=== PATIENT | female | born 1950 | race Caucasian/White ===

== ENCOUNTER 2024-01-09 12:18 | Outpatient (CLI) | payer OTHER | END 2024-01-09 12:19 | disposition home or self-care (01) | LOC: RAD 12:18 | PROVIDERS: ATTEND Nurse Practitioner Family | DX: M25.552 Pain in left hip (principal); M16.0 Bilateral primary osteoarthritis of hip; C79.51 Secondary malignant neoplasm of bone; M89.252 Other disorders of bone development and growth, left femur; M17.12 Unilateral primary osteoarthritis, left knee | CPT/HCPCS: 72170 ==

== ENCOUNTER 2024-01-09 18:11 | Emergency (ER) | payer OTHER ==
[2024-01-09] MEDS ORDERED: Morphine 2 MG/ML VIAL ONE (18:50)
[2024-01-09] MEDS ORDERED: Ondansetron PF 4 MG/2 ML Vial ONE (18:51)
[2024-01-09 20:00] LABS: #Basophils 0.04 10x3/uL (0.0-0.2); %Basophils 0.6 % (0.0-1.0); %Eosinophils 1.7 % (0.0-10.0); %Lymphocytes 30.9 % (21.0-51.0); %Monocytes 8.4 % (0.0-10.0); Hematocrit 38.1 % (36.0-47.0); Hemoglobin 12.3 g/dL (12.0-16.0); Mean Corpuscular HGB CONC 32.3 g/dL (32.0-36.0); Mean Corpuscular Hemoglobin 28.5 pg (27.0-31.0); Mean Corpuscular Volume 88.2 fL (78.0-98.0); Mean Platelet Volume 10.4 fL (7.4-10.4); Platelet Count 262 10x3/uL (130-400); RBC Distribution Width 20.4 % (11.5-14.5); Red Blood Cell (RBC) Count 4.32 mill/uL (4.20-5.40)
[2024-01-09 20:15] LABS: ALT (SGPT) 10 U/L (8-55); AST (SGOT) 17 U/L (5-34); Albumin 3.4 g/dL (3.4-4.8); Alkaline Phosphatase 75 U/L (40-110); Anion Gap 16 mmol/L (10-20); BUN (Urea Nitrogen) 9 mg/dL (9.8-20.1); Bilirubin, Total 0.4 mg/dL (0.2-1.2); Calc. Creatinine Clearance 0 mL/min (70-130); Calcium 9.1 mg/dL (7.8-10.44); Carbon Dioxide 22 mmol/L (23-31); Chloride 107 mmol/L (98-107); Estimated GFR 83; Globulin 3.6 g/dL (2.4-3.5); Glucose 140 mg/dL (83-110); Potassium 3.5 mmol/L (3.5-5.1); Sodium 141 mmol/L (136-145)
[2024-01-09] MEDS ORDERED: Morphine 4 MG/ML VIAL ONE (22:51)
== END 2024-01-10 00:28 | disposition home or self-care (01) ==
LOC: ERS 18:11
DX: M89.9 Disorder of bone, unspecified (principal); M79.652 Pain in left thigh; I10 Essential (primary) hypertension; E11.9 Type 2 diabetes mellitus without complications; Z55.6 Problems related to health literacy
CPT/HCPCS: 72192; 73700; 80053; 83605; 85025; J2272 ×2; J2405; 96374; 96375; 96376

== ENCOUNTER 2024-01-20 11:00 | Outpatient (CLI) | payer MEDICARE | END 2024-01-20 11:01 | disposition home or self-care (01) | LOC: PET 11:00 | PROVIDERS: ATTEND Internal Medicine Hematology & Oncology | DX: D47.2 Monoclonal gammopathy (principal); C79.51 Secondary malignant neoplasm of bone; C77.3 Secondary and unspecified malignant neoplasm of axilla and upper limb lymph nodes; C50.911 Malignant neoplasm of unspecified site of right female breast | CPT/HCPCS: 78815; A9552 ==

== ENCOUNTER → 2024-01-22 | Day surgery (SDC) | payer MEDICARE ==
[~2024-01-22] MED LIST: Lidocaine 1% w/Epinephrine 1:100K 20 ML VIAL ONE; Sodium Bicarbonate 2.5 MEQ/5 ML SDV ONE
== END ==
LOC: ULT 11:34
PROVIDERS: ATTEND Internal Medicine Hematology & Oncology
PROC: 07B53ZX Excision of Right Axillary Lymphatic, Percutaneous Approach, Diagnostic (ICD-10-PCS; principal; 2024-01-22)
DX: C77.3 Secondary and unspecified malignant neoplasm of axilla and upper limb lymph nodes (principal); C50.911 Malignant neoplasm of unspecified site of right female breast; I10 Essential (primary) hypertension; E11.9 Type 2 diabetes mellitus without complications; F32.A Depression, unspecified; F41.9 Anxiety disorder, unspecified; Z91.048 Other nonmedicinal substance allergy status; Z79.899 Other long term (current) drug therapy
CPT/HCPCS: 38505; 76942; 88305; 88333; 88334; 88341; 88342

== ENCOUNTER 2024-02-13 04:57 | Inpatient (IN) | payer MEDICARE ==
[2024-02-13] MEDS ORDERED: HYDROmorphone 0.5 MG/0.5 ML SYRINGE ONE ×4 (05:35→07:37)
[2024-02-13] MEDS ORDERED: CEFAZOLIN 2 GM in Sodium Chloride 0.9% 100 ML IVPB SCH (07:30)
[2024-02-13 09:38] LABS: #Basophils 0.04 10x3/uL (0.0-0.2); #Eosinophils Less than 0.03 10x3/uL (0.0-0.7); %Basophils 0.4 % (0.0-1.0); %Eosinophils 0.2 % (0.0-10.0); %Lymphocytes 7.8 % (21.0-51.0); %Monocytes 5.5 % (0.0-10.0); %Neutrophils 85.5 % (42.0-75.0); Hematocrit 39.3 % (36.0-47.0); Hemoglobin 12.4 g/dL (12.0-16.0); Mean Corpuscular HGB CONC 31.6 g/dL (32.0-36.0); Mean Corpuscular Hemoglobin 27.7 pg (27.0-31.0); Mean Corpuscular Volume 87.9 fL (78.0-98.0); Mean Platelet Volume 9.6 fL (7.4-10.4); Platelet Count 249 10x3/uL (130-400); RBC Distribution Width 19.9 % (11.5-14.5); Red Blood Cell (RBC) Count 4.47 mill/uL (4.20-5.40)
[2024-02-13] MEDS ORDERED: Ondansetron PF 4 MG/2 ML Vial IVP PRN (09:49)
[2024-02-13 09:50] LABS: ALT (SGPT) 19 U/L (8-55); AST (SGOT) 29 U/L (5-34); Albumin 3.2 g/dL (3.4-4.8); Alkaline Phosphatase 89 U/L (40-110); Anion Gap 15 mmol/L (10-20); BUN (Urea Nitrogen) 8 mg/dL (9.8-20.1); Bilirubin, Total 0.9 mg/dL (0.2-1.2); Calc. Creatinine Clearance 0 mL/min (70-130); Calcium 9.1 mg/dL (7.8-10.44); Carbon Dioxide 23 mmol/L (23-31); Chloride 104 mmol/L (98-107); Estimated GFR 89; Glucose 157 mg/dL (83-110); Potassium 3.5 mmol/L (3.5-5.1); Protein, Total 7.2 g/dL (5.8-8.1); Sodium 138 mmol/L (136-145)
[2024-02-13] MEDS ORDERED: HYDROmorphone 0.5 MG/0.5 ML SYRINGE SLOW IVP PRN (09:52)
[2024-02-13] MEDS ORDERED: Glucagon 1 MG/ML KIT IM PRN (11:01)
[2024-02-13] MEDS ORDERED: Dextrose 50% Abboject 50 ML SYRINGE SLOW IVP PRN (11:01)
[2024-02-13] MEDS ORDERED: Insulin Lispro 100 UNIT/ML 10 ML VIAL SC PRN (11:01)
[2024-02-13] MEDS ORDERED: Dextrose 5% in Water 1,000 ML IV PRN (11:01)
[2024-02-13] MEDS ORDERED: hydrALAZINE 20 MG/ML VIAL SLOW IVP PRN (11:03)
[2024-02-13] MEDS: Sodium Chloride 0.9% 1,000 ML IV SCH (11:44)
[2024-02-13] MEDS: fentaNYL 50 mcg/mL 1 mL Vial SLOW IVP SCH (12:19)
[2024-02-13 14:02] VITALS: BMI 33.3
[2024-02-13] MEDS: Morphine 4 MG/ML VIAL SLOW IVP PRN (14:11)
[2024-02-13] MEDS ORDERED: PROPOFOL 40 ML ONE (16:15)
[2024-02-13] MEDS ORDERED: Ondansetron PF 4 MG/2 ML Vial ONE (16:15)
[2024-02-13] MEDS ORDERED: Lidocaine 1% PF 5 ML VIAL ONE (16:15)
[2024-02-13] MEDS ORDERED: Dexamethasone 4 mg/ml Vial ONE (16:15)
[2024-02-13] MEDS ORDERED: fentaNYL PF 100 MCG/2 ML SYRINGE ONE (16:15)
[2024-02-13] MEDS ORDERED: PHENYLEPHRINE-NS 100 MCG/ML 10 ML SYRINGE ONE (16:16)
[2024-02-13] MEDS ORDERED: fentaNYL 50 mcg/mL 1 mL Vial ONE ×2 (16:24→18:33)
[2024-02-13] MEDS ORDERED: CEFAZOLIN 2 GM VIAL ONE (16:25)
[2024-02-13] MEDS ORDERED: Rocuronium Bromide 10 MG/ML (10ML VIAL) ONE (16:41)
[2024-02-13] MEDS ORDERED: SUGAMMADEX SODIUM 200 MG/2 ML VIAL ONE (17:07)
[2024-02-13] MEDS ORDERED: Ondansetron HCl/PF 4 MG/2 ML Vial IVP PRN (17:07)
[2024-02-13] MEDS: Famotidine/PF 20 mg/2ml Vial SLOW IVP SCH (20:33)
[2024-02-13] MEDS: Acetaminophen 500 MG TAB PO SCH (20:34)
[2024-02-13] MEDS: CEFAZOLIN 2 GM in Sodium Chloride 0.9% 100 ML IVPB SCH (23:41)
[2024-02-14 04:55] LABS: #Basophils 0.04 10x3/uL (0.0-0.2); #Eosinophils Less than 0.03 10x3/uL (0.0-0.7); %Basophils 0.4 % (0.0-1.0); %Eosinophils 0.1 % (0.0-10.0); %Lymphocytes 12.1 % (21.0-51.0); %Monocytes 12.1 % (0.0-10.0); %Neutrophils 74.8 % (42.0-75.0); Hematocrit 34.8 % (36.0-47.0); Mean Corpuscular HGB CONC 31.6 g/dL (32.0-36.0); Mean Corpuscular Hemoglobin 27.7 pg (27.0-31.0); Mean Corpuscular Volume 87.7 fL (78.0-98.0); Mean Platelet Volume 10.4 fL (7.4-10.4); Platelet Count 256 10x3/uL (130-400); RBC Distribution Width 19.7 % (11.5-14.5); Red Blood Cell (RBC) Count 3.97 mill/uL (4.20-5.40)
[2024-02-14 05:15] LABS: ALT (SGPT) 13 U/L (8-55); AST (SGOT) 28 U/L (5-34); Albumin 2.7 g/dL (3.4-4.8); Alkaline Phosphatase 72 U/L (40-110); Anion Gap 11 mmol/L (10-20); BUN (Urea Nitrogen) 8 mg/dL (9.8-20.1); Bilirubin, Total 0.8 mg/dL (0.2-1.2); Calc. Creatinine Clearance 110 mL/min (70-130); Calcium 8.6 mg/dL (7.8-10.44); Carbon Dioxide 25 mmol/L (23-31); Chloride 104 mmol/L (98-107); Estimated GFR 92; Globulin 3.5 g/dL (2.4-3.5); Glucose 148 mg/dL (83-110); Potassium 3.9 mmol/L (3.5-5.1); Protein, Total 6.2 g/dL (5.8-8.1); Sodium 136 mmol/L (136-145)
[2024-02-14] MEDS: FLU (Fluad Triv) TS24-25 (65UP)/MF59C/PF 45 MCG/0.5 ML Syringe IM ONE (10:10)
[2024-02-14 11:44] VITALS: BMI 33.3
[2024-02-14] MEDS ORDERED: Insulin Lispro 100 UNIT/ML 10 ML VIAL SC PRN (14:03)
[2024-02-14] MEDS: Gabapentin 300 MG CAP PO SCH (15:23)
[2024-02-14] MEDS: Letrozole 2.5 MG TAB PO SCH (15:23)
[2024-02-14] MEDS: Senokot S 8.6-50 MG TAB PO SCH (20:26)
[2024-02-14] MEDS: Acetaminophen 325 MG TAB PO PRN (20:29)
[2024-02-15] MEDS: Ketorolac Tromethamine 30 MG (1 mL) VIAL IVP PRN (04:46)
[2024-02-15] MEDS: Sertraline 25 MG TAB PO SCH (09:02)
[2024-02-15] MEDS: Ezetimibe 10 MG TAB PO SCH (09:03)
[2024-02-15] MEDS: Atenolol 25 MG TAB PO SCH (09:03)
[2024-02-15] MEDS: Letrozole 2.5 MG TAB PO SCH (09:12)
[2024-02-15] MEDS: Famotidine 20 MG TAB PO SCH (09:16)
[2024-02-15] MEDS ORDERED: Polyethylene Glycol 3350 17 GM Packet PO PRN (11:39)
[2024-02-15] MEDS: Morphine ER 30 MG TAB PO SCH (11:59)
[2024-02-15] MEDS: PARoxetine 20 MG TAB PO SCH (12:02)
[2024-02-15] MEDS: Methocarbamol 500 MG TAB PO PRN (15:00)
[2024-02-15] MEDS: Senokot S 8.6-50 MG TAB PO SCH (19:34)
[2024-02-16] MEDS: Zolpidem Tartrate 5 MG TAB PO SCH ×2 (00:57→21:43)
[2024-02-16 05:52] LABS: #Basophils Less than 0.03 10x3/uL (0.0-0.2); %Basophils 0.3 % (0.0-1.0); %Lymphocytes 27.9 % (21.0-51.0); %Monocytes 11.1 % (0.0-10.0); %Neutrophils 56.2 % (42.0-75.0); Hematocrit 26.1 % (36.0-47.0); Hemoglobin 8.2 g/dL (12.0-16.0); Mean Corpuscular HGB CONC 31.4 g/dL (32.0-36.0); Mean Corpuscular Volume 89.1 fL (78.0-98.0); Mean Platelet Volume 11.1 fL (7.4-10.4); Platelet Count 156 10x3/uL (130-400); RBC Distribution Width 19.5 % (11.5-14.5); Red Blood Cell (RBC) Count 2.93 mill/uL (4.20-5.40)
[2024-02-16 06:26] LABS: Anion Gap 11 mmol/L (10-20); BUN (Urea Nitrogen) 16 mg/dL (9.8-20.1); Calc. Creatinine Clearance 109 mL/min (70-130); Calcium 8.2 mg/dL (7.8-10.44); Carbon Dioxide 24 mmol/L (23-31); Chloride 104 mmol/L (98-107); Estimated GFR 92; Glucose 131 mg/dL (83-110); Magnesium 1.8 mg/dL (1.6-2.6); Potassium 3.4 mmol/L (3.5-5.1); Sodium 136 mmol/L (136-145)
[2024-02-16 14:58] LABS: Hematocrit 27.2 % (36.0-47.0); Hemoglobin 8.4 g/dL (12.0-16.0); Mean Corpuscular HGB CONC 30.9 g/dL (32.0-36.0); Mean Corpuscular Hemoglobin 27.8 pg (27.0-31.0); Mean Corpuscular Volume 90.1 fL (78.0-98.0); Mean Platelet Volume 10.4 fL (7.4-10.4); Platelet Count 172 10x3/uL (130-400); RBC Distribution Width 19.4 % (11.5-14.5); Red Blood Cell (RBC) Count 3.02 mill/uL (4.20-5.40)
[2024-02-16] MEDS: Morphine ER 30 MG TAB PO SCH (21:42)
[2024-02-17 06:04] LABS: #Basophils 0.03 10x3/uL (0.0-0.2); %Basophils 0.5 % (0.0-1.0); %Eosinophils 3.6 % (0.0-10.0); %Lymphocytes 23.2 % (21.0-51.0); %Monocytes 9.7 % (0.0-10.0); %Neutrophils 62.3 % (42.0-75.0); Hematocrit 28.7 % (36.0-47.0); Hemoglobin 8.9 g/dL (12.0-16.0); Mean Corpuscular Volume 90.3 fL (78.0-98.0); Mean Platelet Volume 10.8 fL (7.4-10.4); Platelet Count 207 10x3/uL (130-400); RBC Distribution Width 19.5 % (11.5-14.5); Red Blood Cell (RBC) Count 3.18 mill/uL (4.20-5.40)
[2024-02-17 06:35] LABS: Anion Gap 10 mmol/L (10-20); BUN (Urea Nitrogen) 10 mg/dL (9.8-20.1); Calc. Creatinine Clearance 102 mL/min (70-130); Calcium 8.5 mg/dL (7.8-10.44); Carbon Dioxide 28 mmol/L (23-31); Chloride 104 mmol/L (98-107); Estimated GFR 91; Glucose 165 mg/dL (83-110); Potassium 3.9 mmol/L (3.5-5.1); Sodium 138 mmol/L (136-145)
[2024-02-17] MEDS: Cholecalciferol 1,000 UNITS (25 MCG) TAB PO SCH (09:05)
[2024-02-17] MEDS: Morphine ER 30 MG TAB PO SCH (09:06)
[2024-02-17] MEDS: Sodium Chloride 0.9% 500 ML IV SCH (20:37)
[2024-02-19] MEDS: clonazePAM 0.5 MG TAB PO PRN (18:57)
[2024-02-20 08:40] VITALS: BP 125/77; TEMP 97.2
== END 2024-02-20 12:35 | DRG 481 ==
LOC: ERS 04:57 → SURG A 07:10
PROVIDERS: ADMIT Internal Medicine; ATTEND Internal Medicine
PROC: 0QS734Z Reposition Left Upper Femur with Internal Fixation Device, Percutaneous Approach (ICD-10-PCS; principal; 2024-02-14)
DX: M84.452A Pathological fracture, left femur, initial encounter for fracture (principal); C79.89 Secondary malignant neoplasm of other specified sites; F41.9 Anxiety disorder, unspecified; F32.A Depression, unspecified; E78.5 Hyperlipidemia, unspecified; I12.9 Hypertensive chronic kidney disease with stage 1 through stage 4 chronic kidney disease, or unspecified chronic kidney disease; E11.22 Type 2 diabetes mellitus with diabetic chronic kidney disease; N18.9 Chronic kidney disease, unspecified; M54.50 Low back pain, unspecified; G89.4 Chronic pain syndrome; C50.911 Malignant neoplasm of unspecified site of right female breast; D64.9 Anemia, unspecified; E66.9 Obesity, unspecified; Z68.33 Body mass index [BMI] 33.0-33.9, adult
CPT/HCPCS: 36415; 36416; 80048; 80053; 82306; 83735; 85025; 93005; 93010; 96374; 96376; C1713; J1100; J1171; J1885; J2272; J2405; J2704; J3010; J3490; J7030

== ENCOUNTER 2024-10-02 09:30 | Outpatient (CLI) | payer MEDICARE | END 2024-10-02 09:31 | disposition home or self-care (01) | LOC: PET 09:30 | PROVIDERS: ATTEND Internal Medicine Hematology & Oncology | DX: C79.51 Secondary malignant neoplasm of bone (principal); D47.2 Monoclonal gammopathy; C50.111 Malignant neoplasm of central portion of right female breast | CPT/HCPCS: 78815; A9552 ==

== ENCOUNTER 2024-10-20 11:00 | Outpatient (CLI) | payer MEDICARE | END 2024-10-20 11:01 | disposition home or self-care (01) | LOC: BICRAD 11:00 | PROVIDERS: ATTEND Physician Assistant | DX: S12.590D Other displaced fracture of sixth cervical vertebra, subsequent encounter for fracture with routine healing (principal); D47.2 Monoclonal gammopathy; C79.51 Secondary malignant neoplasm of bone; C50.111 Malignant neoplasm of central portion of right female breast | CPT/HCPCS: 72040; 80053; 85025; 86300 ==

== ENCOUNTER 2025-01-01 14:35 | Inpatient (IN) | payer MEDICARE ==
[2025-01-01 15:07] LABS: Bacteria/HPF 4+ HPF (None Seen); CAUTI Indications for Culture Immunosuppressed; Glucose, Urine (Dipstick) Greater than 1000 mg/dL (Negative); Leukocyte 500 Leu/uL (Negative); Protein, Urine (Dipstick) 30 mg/dL (Neg-Trace); RBC/HPF Greater than 50 HPF (0-3); Specific Gravity, Urine 1.024 (1.002-1.036); WBC/HPF Greater than 50 HPF (0-3)
[2025-01-01 15:09] LABS: Urine Culture Reflex Yes Yes
[2025-01-01 15:45] LABS: Hematocrit 23.3 % (36.0-47.0); Hemoglobin 7.4 g/dL (12.0-16.0); Mean Corpuscular Hemoglobin 28.5 pg (27.0-31.0); Mean Corpuscular Volume 89.6 fL (78.0-98.0); Platelet Count 57 10x3/uL (130-400); Red Blood Cell (RBC) Count 2.60 mill/uL (4.20-5.40); White Blood Cell (WBC) Count 2.40 10x3/uL (4.8-10.8)
[2025-01-01 15:53] LABS: ALT (SGPT) Less than 7 U/L (Less than 34); AST (SGOT) 29 U/L (11-34); Albumin 3.0 g/dL (3.1-4.5); Alkaline Phosphatase 48 U/L (40-110); Anion Gap 18 mmol/L (10-20); BUN (Urea Nitrogen) 8 mg/dL (9.8-20.1); Bilirubin, Total 1.0 mg/dL (0.3-1.2); Calc. Creatinine Clearance 0 mL/min (70-130); Calcium 8.8 mg/dL (7.8-10.44); Carbon Dioxide 20 mmol/L (23-31); Chloride 103 mmol/L (98-107); Globulin 3.8 g/dL (2.4-3.5); Glucose 103 mg/dL (83-110); Potassium 4.1 mmol/L (3.5-5.1); Sodium 137 mmol/L (136-145)
[2025-01-01 16:23] LABS: Anisocytosis MODERATE=16-30 cells HPF (0-5); Macrocytosis MODERATE=16-30 cells HPF (0-5); Ovalocytes SLIGHT = 2-5 cells HPF (0-1); Platelet Adequacy Comment Significant Decrease; Poikilocytosis SLIGHT = 6-15 cells HPF (0-5); Polychromasia SLIGHT = 2-3 cells HPF (0-2); Schistocytes SLIGHT = 2-5 cells HPF (0-1); Smudge Cells 7.0 %
[2025-01-01] MEDS ORDERED: HYDROcodone/Acetaminophen 5/325 mg Tablet ONE (16:28)
[2025-01-01] MEDS ORDERED: cefTRIAXone (ROCEPHIN) 1 GM VIAL ONE ×2 (17:06→18:02)
[2025-01-01] MEDS ORDERED: Acetaminophen 325 MG TAB PO PRN (18:05)
[2025-01-01] MEDS ORDERED: Ondansetron PF 4 MG/2 ML Vial IVP PRN (18:05)
[2025-01-01] MEDS ORDERED: Melatonin 3 MG TAB PO PRN (18:05)
[2025-01-01] MEDS ORDERED: Electrolyte Replacement Protocol 1 EACH FS SCH (18:15)
[2025-01-01] MEDS ORDERED: Magnesium 2 GM/50 ML(in water) 2 GM in Premix 1 BAG IVPB PRN (18:30)
[2025-01-01] MEDS ORDERED: PHOS-NAK 1 PKT PACK PO PRN (18:30)
[2025-01-01] MEDS ORDERED: Potassium Chloride 20 MEQ in Premix 1 BAG IVPB PRN (18:30)
[2025-01-01 20:53] VITALS: BMI 26.6
[2025-01-02] MEDS: HYDROcodone/Acetaminophen 5/325 mg Tablet PO PRN (00:21)
[2025-01-02] MEDS: Letrozole 2.5 MG TAB PO SCH ×2 (00:21→20:07)
[2025-01-02 05:36] LABS: Hematocrit 22.7 % (36.0-47.0); Hemoglobin 7.5 g/dL (12.0-16.0); Mean Corpuscular Hemoglobin 29.6 pg (27.0-31.0); Mean Corpuscular Volume 89.7 fL (78.0-98.0); Platelet Count 45 10x3/uL (130-400); Red Blood Cell (RBC) Count 2.53 mill/uL (4.20-5.40); Reflex for Review?? YES; White Blood Cell (WBC) Count 1.88 10x3/uL (4.8-10.8)
[2025-01-02 05:47] LABS: Anion Gap 9 mmol/L (10-20); BUN (Urea Nitrogen) 9 mg/dL (9.8-20.1); Calc. Creatinine Clearance 97 mL/min (70-130); Calcium 8.2 mg/dL (7.8-10.44); Carbon Dioxide 26 mmol/L (23-31); Chloride 109 mmol/L (98-107); Glucose 112 mg/dL (83-110); Potassium 3.8 mmol/L (3.5-5.1); Sodium 140 mmol/L (136-145)
[2025-01-02 06:13] LABS: Anisocytosis SLIGHT = 6-15 cells HPF (0-5); Burr Cells SLIGHT = 2-5 cells HPF (0-1); Platelet Adequacy Comment Platelets Decreased; Poikilocytosis MODERATE=16-30 cells HPF (0-5); Polychromasia SLIGHT = 2-3 cells HPF (0-2); Schistocytes MODERATE= 6-15 cells HPF (0-1); Smudge Cells 4.0 %; Toxic Granulation SLIGHT
[2025-01-02] MEDS ORDERED: Letrozole 2.5 MG TAB PO SCH (09:00)
[2025-01-02] MEDS: FLU (Fluad Triv) 25-26 (65UP)PF 45 MCG/0.5 ML Syringe IM ONE (09:53)
[2025-01-02] MEDS: cefTRIAXone\\ROCEPHIN 1 GM in Sodium Chloride 0.9% 100 ML IVPB SCH (17:29)
[2025-01-02] MEDS: Ezetimibe 10 MG TAB PO SCH (20:07)
[2025-01-03 04:51] LABS: #Basophils Less than 0.03 10x3/uL (0.0-0.2); #Eosinophils Less than 0.03 10x3/uL (0.0-0.7); #Monocytes 0.33 10x3/uL (0.11-0.59); #Neutrophils 0.66 10x3/uL (1.40-6.50); %Basophils 1.2 % (0.0-1.0); %Eosinophils 0.6 % (0.0-10.0); %Lymphocytes 39.9 % (21.0-51.0); %Monocytes 19.1 % (0.0-10.0); %Neutrophils 38.0 % (42.0-75.0); Hematocrit 23.8 % (36.0-47.0); Hemoglobin 7.8 g/dL (12.0-16.0); Mean Corpuscular Hemoglobin 29.1 pg (27.0-31.0); Mean Corpuscular Volume 88.8 fL (78.0-98.0); Platelet Count 43 10x3/uL (130-400); Red Blood Cell (RBC) Count 2.68 mill/uL (4.20-5.40); White Blood Cell (WBC) Count 1.73 10x3/uL (4.8-10.8)
[2025-01-03 05:15] LABS: ALT (SGPT) Less than 7 U/L (Less than 34); AST (SGOT) 17 U/L (11-34); Albumin 2.3 g/dL (3.1-4.5); Alkaline Phosphatase 37 U/L (40-110); Anion Gap 10 mmol/L (10-20); BUN (Urea Nitrogen) 6 mg/dL (9.8-20.1); Bilirubin, Total 0.9 mg/dL (0.3-1.2); Calc. Creatinine Clearance 108 mL/min (70-130); Calcium 8.2 mg/dL (7.8-10.44); Carbon Dioxide 23 mmol/L (23-31); Chloride 111 mmol/L (98-107); Globulin 3.0 g/dL (2.4-3.5); Glucose 101 mg/dL (83-110); Magnesium 1.8 mg/dL (1.6-2.6); Potassium 3.5 mmol/L (3.5-5.1); Sodium 140 mmol/L (136-145)
[2025-01-03 05:20] LABS: Anisocytosis MODERATE=16-30 cells HPF (0-5); Burr Cells SLIGHT = 2-5 cells HPF (0-1); Macrocytosis SLIGHT = 6-15 cells HPF (0-5); Platelet Adequacy Comment Platelets Decreased; Poikilocytosis MODERATE=16-30 cells HPF (0-5); Polychromasia SLIGHT = 2-3 cells HPF (0-2); Smudge Cells 9.8 %; Toxic Granulation SLIGHT
[2025-01-03] MEDS: TBO-Filgrastim 300 MCG/0.5 ML VIAL SC SCH (10:04)
[2025-01-03 13:36] VITALS: BMI 26.6
[2025-01-03] MEDS: VANCOMYCIN 1.75 GM/350 ML Premix BAG IVPB SCH (15:04)
[2025-01-03] MEDS: HYDROcodone/Acetaminophen 5/325 mg Tablet PO PRN (15:04)
[2025-01-03] MEDS ORDERED: Vancomycin 1 GM in Premix 1 BAG IVPB SCH (21:00)
[2025-01-04 05:03] LABS: Hematocrit 23.6 % (36.0-47.0); Hemoglobin 7.8 g/dL (12.0-16.0); Mean Corpuscular Hemoglobin 29.7 pg (27.0-31.0); Mean Corpuscular Volume 89.7 fL (78.0-98.0); Platelet Count 43 10x3/uL (130-400); Red Blood Cell (RBC) Count 2.63 mill/uL (4.20-5.40); White Blood Cell (WBC) Count 8.50 10x3/uL (4.8-10.8)
[2025-01-04 05:08] LABS: Vancomycin, Random 13.8 ug/mL (See Comment)
[2025-01-04 05:10] LABS: ALT (SGPT) Less than 7 U/L (Less than 34); AST (SGOT) 16 U/L (11-34); Albumin 2.3 g/dL (3.1-4.5); Alkaline Phosphatase 39 U/L (40-110); Anion Gap 9 mmol/L (10-20); BUN (Urea Nitrogen) 7 mg/dL (9.8-20.1); Bilirubin, Total 0.9 mg/dL (0.3-1.2); Calc. Creatinine Clearance 104 mL/min (70-130); Calcium 8.0 mg/dL (7.8-10.44); Carbon Dioxide 24 mmol/L (23-31); Chloride 109 mmol/L (98-107); Globulin 2.8 g/dL (2.4-3.5); Glucose 110 mg/dL (83-110); Magnesium 1.6 mg/dL (1.6-2.6); Potassium 3.8 mmol/L (3.5-5.1); Sodium 138 mmol/L (136-145)
[2025-01-04 06:31] LABS: Anisocytosis SLIGHT = 6-15 cells HPF (0-5); Platelet Adequacy Comment Platelets Decreased; Poikilocytosis MARKED = >30 cells HPF (0-5); Polychromasia SLIGHT = 2-3 cells HPF (0-2); Schistocytes MODERATE= 6-15 cells HPF (0-1); Smudge Cells 8.8 %
[2025-01-04] MEDS: FILGRASTIM-AYOW 480 MCG/0.8 ML SYRINGE SC SCH (09:02)
[2025-01-04 11:39] VITALS: BP 94/58; TEMP 98.1
== END 2025-01-04 13:53 | disposition home or self-care (01) | DRG 872 ==
LOC: ERS 14:35 → ERHOLD 17:40 → T4-A 19:37 → ERHOLD 19:49 → T4-A 20:06 → OBSVTOIN 01-02 13:13
PROVIDERS: ADMIT Internal Medicine; ATTEND Internal Medicine
PROC: 3E03329 Introduction of Other Anti-infective into Peripheral Vein, Percutaneous Approach (ICD-10-PCS; principal; 2025-01-02)
PROC: 3E0234Z Introduction of Serum, Toxoid and Vaccine into Muscle, Percutaneous Approach (ICD-10-PCS; 2025-01-02)
PROC: 30233N1 Transfusion of Nonautologous Red Blood Cells into Peripheral Vein, Percutaneous Approach (ICD-10-PCS; 2025-01-02)
DX: A41.9 Sepsis, unspecified organism (principal); N39.0 Urinary tract infection, site not specified; C79.81 Secondary malignant neoplasm of breast; C79.51 Secondary malignant neoplasm of bone; D70.1 Agranulocytosis secondary to cancer chemotherapy; D63.0 Anemia in neoplastic disease; I10 Essential (primary) hypertension; E11.9 Type 2 diabetes mellitus without complications; Z96.642 Presence of left artificial hip joint; I95.9 Hypotension, unspecified; F41.8 Other specified anxiety disorders; E78.00 Pure hypercholesterolemia, unspecified; Z87.81 Personal history of (healed) traumatic fracture; Z79.899 Other long term (current) drug therapy; Z79.890 Hormone replacement therapy; C50.111 Malignant neoplasm of central portion of right female breast; D47.2 Monoclonal gammopathy
CPT/HCPCS: 36415; 36416; 36430; 80048; 80053; 80202; 81001; 82728; 83540; 83550; 83605; 83735; 85025; 85060; 86300; 86850; 86900; 86901; 87040; 87077; 87086; 87149; 87186; 96365; 96366; 97139; G0378; J0696; J1447; J3373; J3375; J7050; J7120; P9016

== ENCOUNTER 2025-01-18 09:29 | Inpatient (IN) | payer MEDICARE ==
[2025-01-18 10:08] LABS: Hematocrit 16.8 % (36.0-47.0); Hemoglobin 5.7 g/dL (12.0-16.0); Mean Corpuscular Hemoglobin 28.9 pg (27.0-31.0); Mean Corpuscular Volume 85.3 fL (78.0-98.0); Platelet Count 53 10x3/uL (130-400); Red Blood Cell (RBC) Count 1.97 mill/uL (4.20-5.40); White Blood Cell (WBC) Count 1.68 10x3/uL (4.8-10.8)
[2025-01-18 10:28] LABS: ALT (SGPT) Less than 7 U/L (Less than 34); AST (SGOT) 25 U/L (11-34); Albumin 2.9 g/dL (3.1-4.5); Alkaline Phosphatase 44 U/L (40-110); Anion Gap 14 mmol/L (10-20); BUN (Urea Nitrogen) 11 mg/dL (9.8-20.1); Bilirubin, Total 1.8 mg/dL (0.3-1.2); Calc. Creatinine Clearance 0 mL/min (70-130); Calcium 8.6 mg/dL (7.8-10.44); Carbon Dioxide 22 mmol/L (23-31); Chloride 105 mmol/L (98-107); Globulin 3.4 g/dL (2.4-3.5); Glucose 111 mg/dL (83-110); Potassium 3.6 mmol/L (3.5-5.1); Sodium 137 mmol/L (136-145)
[2025-01-18 10:31] LABS: Anisocytosis MODERATE=16-30 cells HPF (0-5); Burr Cells SLIGHT = 2-5 cells HPF (0-1); Nucleated RBC (Manual Ct) 1 % (0); Ovalocytes SLIGHT = 2-5 cells HPF (0-1); Platelet Adequacy Comment Platelets Decreased; Poikilocytosis MODERATE=16-30 cells HPF (0-5); Polychromasia SLIGHT = 2-3 cells HPF (0-2); Schistocytes MODERATE= 6-15 cells HPF (0-1)
[2025-01-18] MEDS ORDERED: Amoxicillin/Potassium Clav 875 MG TAB ONE (10:55)
[2025-01-18] MEDS ORDERED: Acetaminophen 325 MG TAB PO PRN (15:25)
[2025-01-18] MEDS ORDERED: Ondansetron PF 4 MG/2 ML Vial IVP PRN (15:25)
[2025-01-18] MEDS ORDERED: Guaifenesin DM 100-10/5 ML UDCUP PO PRN (15:25)
[2025-01-18] MEDS ORDERED: Dextrose 50% Abboject 50 ML SYRINGE SLOW IVP PRN (15:28)
[2025-01-18] MEDS ORDERED: Glucagon 1 MG/ML KIT IM PRN (15:28)
[2025-01-18] MEDS ORDERED: Electrolyte Replacement Protocol 1 EACH FS SCH (15:30)
[2025-01-18] MEDS ORDERED: Magnesium 2 GM/50 ML(in water) 2 GM in Premix 1 BAG IVPB PRN (15:30)
[2025-01-18] MEDS ORDERED: PHOS-NAK 1 PKT PACK PO PRN (15:30)
[2025-01-18] MEDS ORDERED: Potassium Chloride 20 MEQ in Premix 1 BAG IVPB PRN (15:30)
[2025-01-18 17:41] VITALS: BMI 26.1
[2025-01-18] MEDS: Acetaminophen/Codeine 30-300mg Tablet PO PRN (18:11)
[2025-01-18 18:45] LABS: Hematocrit 24.6 % (36.0-47.0); Hemoglobin 8.3 g/dL (12.0-16.0)
[2025-01-18] MEDS: Melatonin 3 MG TAB PO PRN (20:45)
[2025-01-18] MEDS: Methocarbamol 500 MG TAB PO PRN (20:45)
[2025-01-18] MEDS: Gabapentin 400 MG CAP PO SCH (20:45)
[2025-01-18] MEDS: Ezetimibe 10 MG TAB PO SCH (20:45)
[2025-01-19 06:09] LABS: Hematocrit 22.2 % (36.0-47.0); Hemoglobin 7.7 g/dL (12.0-16.0); Mean Corpuscular Hemoglobin 29.5 pg (27.0-31.0); Mean Corpuscular Volume 85.1 fL (78.0-98.0); Platelet Count 41 10x3/uL (130-400); Red Blood Cell (RBC) Count 2.61 mill/uL (4.20-5.40); White Blood Cell (WBC) Count 1.59 10x3/uL (4.8-10.8)
[2025-01-19 06:22] LABS: ALT (SGPT) Less than 7 U/L (Less than 34); AST (SGOT) 22 U/L (11-34); Albumin 2.6 g/dL (3.1-4.5); Alkaline Phosphatase 39 U/L (40-110); Anion Gap 12 mmol/L (10-20); BUN (Urea Nitrogen) 9 mg/dL (9.8-20.1); Bilirubin, Total 2.1 mg/dL (0.3-1.2); Calc. Creatinine Clearance 93 mL/min (70-130); Calcium 8.3 mg/dL (7.8-10.44); Carbon Dioxide 23 mmol/L (23-31); Chloride 106 mmol/L (98-107); Globulin 3.0 g/dL (2.4-3.5); Glucose 96 mg/dL (83-110); Potassium 3.7 mmol/L (3.5-5.1); Sodium 137 mmol/L (136-145)
[2025-01-19 07:44] LABS: Anisocytosis SLIGHT = 6-15 cells HPF (0-5); Burr Cells MODERATE= 6-15 cells HPF (0-1); Macrocytosis SLIGHT = 6-15 cells HPF (0-5); Ovalocytes SLIGHT = 2-5 cells HPF (0-1); Platelet Adequacy Comment Platelets Decreased; Poikilocytosis MODERATE=16-30 cells HPF (0-5); Polychromasia SLIGHT = 2-3 cells HPF (0-2); Schistocytes MODERATE= 6-15 cells HPF (0-1)
[2025-01-19] MEDS: Cholecalciferol 1,000 UNITS (25 MCG) TAB PO SCH (08:59)
[2025-01-19] MEDS ORDERED: FLU (Fluad Triv) 25-26 (65UP)PF 45 MCG/0.5 ML Syringe IM ONE (09:00)
[2025-01-19] MEDS: PARoxetine 20 MG TAB PO SCH (09:01)
[2025-01-19] MEDS: Letrozole 2.5 MG TAB PO SCH (09:01)
[2025-01-19] MEDS: Ergocalciferol 1.25 MG(50,000 UNITS) CAP PO SCH (10:32)
[2025-01-19] MEDS: Morphine IR Tab 15 MG TAB PO PRN (16:07)
[2025-01-20 05:46] LABS: Anion Gap 9 mmol/L (10-20); BUN (Urea Nitrogen) 9 mg/dL (9.8-20.1); Calc. Creatinine Clearance 93 mL/min (70-130); Calcium 8.1 mg/dL (7.8-10.44); Carbon Dioxide 24 mmol/L (23-31); Chloride 106 mmol/L (98-107); Glucose 85 mg/dL (83-110); Potassium 3.8 mmol/L (3.5-5.1); Sodium 135 mmol/L (136-145)
[2025-01-20 05:50] LABS: Hematocrit 21.6 % (36.0-47.0); Hemoglobin 7.6 g/dL (12.0-16.0); Mean Corpuscular Hemoglobin 29.7 pg (27.0-31.0); Mean Corpuscular Volume 84.4 fL (78.0-98.0); Platelet Count 33 10x3/uL (130-400); Red Blood Cell (RBC) Count 2.56 mill/uL (4.20-5.40); White Blood Cell (WBC) Count 1.71 10x3/uL (4.8-10.8)
[2025-01-20 06:29] LABS: Burr Cells SLIGHT = 2-5 cells HPF (0-1); Nucleated RBC (Manual Ct) 1 % (0); Platelet Adequacy Comment Platelets Decreased; Poikilocytosis MODERATE=16-30 cells HPF (0-5); Smudge Cells 22.0 %
[2025-01-20 09:36] LABS: Bacteria/HPF 3+ HPF (None Seen); CAUTI Indications for Culture Dysuria,urgency,freq; Glucose, Urine (Dipstick) 300 mg/dL (Negative); Leukocyte Negative Leu/uL (Negative); Protein, Urine (Dipstick) Negative (Neg-Trace); Specific Gravity, Urine 1.006 (1.002-1.036); WBC/HPF 0-3 HPF (0-3); Yeast-Budding 1+ HPF (None Seen)
[2025-01-20 09:58] LABS: Urine Culture Reflex No No
[2025-01-20] MEDS: ABEMACICLIB 150 MG PO SCH (12:18)
[2025-01-20 15:28] VITALS: BMI 26.1
[2025-01-20] MEDS: Nystatin Powder 15 GM BOT TOP SCH (20:16)
[2025-01-21 08:51] LABS: Anion Gap 13 mmol/L (10-20); BUN (Urea Nitrogen) 8 mg/dL (9.8-20.1); Calc. Creatinine Clearance 87 mL/min (70-130); Calcium 8.2 mg/dL (7.8-10.44); Carbon Dioxide 21 mmol/L (23-31); Chloride 103 mmol/L (98-107); Glucose 89 mg/dL (83-110); Potassium 4.1 mmol/L (3.5-5.1); Sodium 133 mmol/L (136-145)
[2025-01-21 10:51] LABS: Platelet Adequacy Comment Platelets Decreased; Polychromasia MODERATE = 3-4 cells HPF (0-2); Schistocytes SLIGHT = 2-5 cells HPF (0-1); Smudge Cells 14.6 %
[2025-01-21 11:00] LABS: Hematocrit 25.2 % (36.0-47.0); Hemoglobin 8.3 g/dL (12.0-16.0); Mean Corpuscular Hemoglobin 29.6 pg (27.0-31.0); Mean Corpuscular Volume 89.3 fL (78.0-98.0); Platelet Count 29 10x3/uL (130-400); Red Blood Cell (RBC) Count 2.80 mill/uL (4.20-5.40); White Blood Cell (WBC) Count 1.88 10x3/uL (4.8-10.8)
[2025-01-22 06:00] LABS: Hematocrit 22.3 % (36.0-47.0); Hemoglobin 7.3 g/dL (12.0-16.0); Mean Corpuscular Hemoglobin 29.2 pg (27.0-31.0); Mean Corpuscular Volume 89.2 fL (78.0-98.0); Platelet Count 21 10x3/uL (130-400); Red Blood Cell (RBC) Count 2.50 mill/uL (4.20-5.40); White Blood Cell (WBC) Count 1.67 10x3/uL (4.8-10.8)
[2025-01-22 06:05] LABS: Anion Gap 7 mmol/L (10-20); BUN (Urea Nitrogen) 11 mg/dL (9.8-20.1); Calc. Creatinine Clearance 88 mL/min (70-130); Calcium 8.2 mg/dL (7.8-10.44); Carbon Dioxide 27 mmol/L (23-31); Chloride 102 mmol/L (98-107); Glucose 107 mg/dL (83-110); Potassium 4.2 mmol/L (3.5-5.1); Sodium 132 mmol/L (136-145)
[2025-01-22 06:31] LABS: Anisocytosis SLIGHT = 6-15 cells HPF (0-5); Platelet Adequacy Comment Platelets Decreased; Poikilocytosis MODERATE=16-30 cells HPF (0-5); Polychromasia SLIGHT = 2-3 cells HPF (0-2)
[2025-01-23 05:34] LABS: #Basophils 0.03 10x3/uL (0.0-0.2); #Eosinophils Less than 0.03 10x3/uL (0.0-0.7); #Monocytes 0.41 10x3/uL (0.11-0.59); #Neutrophils 0.47 10x3/uL (1.40-6.50); %Basophils 1.6 % (0.0-1.0); %Eosinophils 1.1 % (0.0-10.0); %Lymphocytes 47.1 % (21.0-51.0); %Monocytes 21.9 % (0.0-10.0); %Neutrophils 25.1 % (42.0-75.0); Hematocrit 25.2 % (36.0-47.0); Hemoglobin 8.2 g/dL (12.0-16.0); Mean Corpuscular Hemoglobin 29.3 pg (27.0-31.0); Mean Corpuscular Volume 90.0 fL (78.0-98.0); Platelet Count 20 10x3/uL (130-400); Red Blood Cell (RBC) Count 2.80 mill/uL (4.20-5.40); White Blood Cell (WBC) Count 1.87 10x3/uL (4.8-10.8)
[2025-01-23 05:42] LABS: Anion Gap 11 mmol/L (10-20); BUN (Urea Nitrogen) 11 mg/dL (9.8-20.1); Calc. Creatinine Clearance 90 mL/min (70-130); Calcium 8.3 mg/dL (7.8-10.44); Carbon Dioxide 26 mmol/L (23-31); Chloride 99 mmol/L (98-107); Glucose 104 mg/dL (83-110); Potassium 4.5 mmol/L (3.5-5.1); Sodium 131 mmol/L (136-145)
[2025-01-24 06:26] LABS: Hematocrit 21.1 % (36.0-47.0); Hemoglobin 7.0 g/dL (12.0-16.0); Mean Corpuscular Hemoglobin 29.4 pg (27.0-31.0); Mean Corpuscular Volume 88.7 fL (78.0-98.0); Platelet Count 18 10x3/uL (130-400); Red Blood Cell (RBC) Count 2.38 mill/uL (4.20-5.40); White Blood Cell (WBC) Count 1.72 10x3/uL (4.8-10.8)
[2025-01-24 06:48] LABS: Anion Gap 9 mmol/L (10-20); BUN (Urea Nitrogen) 12 mg/dL (9.8-20.1); Calc. Creatinine Clearance 88 mL/min (70-130); Calcium 7.9 mg/dL (7.8-10.44); Carbon Dioxide 25 mmol/L (23-31); Chloride 101 mmol/L (98-107); Glucose 108 mg/dL (83-110); Potassium 4.1 mmol/L (3.5-5.1); Sodium 131 mmol/L (136-145)
[2025-01-24 07:00] LABS: Platelet Adequacy Comment Platelets Decreased; Poikilocytosis SLIGHT = 6-15 cells HPF (0-5); Polychromasia SLIGHT = 2-3 cells HPF (0-2); Smudge Cells 9.8 %
[2025-01-25 05:35] LABS: #Basophils 0.03 10x3/uL (0.0-0.2); #Eosinophils Less than 0.03 10x3/uL (0.0-0.7); #Monocytes 0.37 10x3/uL (0.11-0.59); #Neutrophils 0.48 10x3/uL (1.40-6.50); %Basophils 1.6 % (0.0-1.0); %Eosinophils 0.5 % (0.0-10.0); %Lymphocytes 50.3 % (21.0-51.0); %Monocytes 20.2 % (0.0-10.0); %Neutrophils 26.3 % (42.0-75.0); Hematocrit 19.3 % (36.0-47.0); Hemoglobin 6.5 g/dL (12.0-16.0); Mean Corpuscular Hemoglobin 29.7 pg (27.0-31.0); Mean Corpuscular Volume 88.1 fL (78.0-98.0); Platelet Count 36 10x3/uL (130-400); Red Blood Cell (RBC) Count 2.19 mill/uL (4.20-5.40); White Blood Cell (WBC) Count 1.83 10x3/uL (4.8-10.8)
[2025-01-26 05:48] LABS: Hematocrit 22.1 % (36.0-47.0); Hemoglobin 7.4 g/dL (12.0-16.0); Mean Corpuscular Hemoglobin 29.4 pg (27.0-31.0); Mean Corpuscular Volume 87.7 fL (78.0-98.0); Platelet Count 26 10x3/uL (130-400); Red Blood Cell (RBC) Count 2.52 mill/uL (4.20-5.40); White Blood Cell (WBC) Count 1.77 10x3/uL (4.8-10.8)
[2025-01-26 06:18] LABS: Anisocytosis SLIGHT = 6-15 cells HPF (0-5); Nucleated RBC (Manual Ct) 1 % (0); Platelet Adequacy Comment Platelets Decreased; Polychromasia SLIGHT = 2-3 cells HPF (0-2)
[2025-01-26] MEDS: Glycerin Adult Supp. (12 ct jar) RC SCH (17:54)
[2025-01-26 18:32] VITALS: BP 106/68; TEMP 98.6
== END 2025-01-26 18:23 | DRG 809 ==
LOC: ERS 09:29 → T4-A 15:56 → OBSVTOIN 01-19 17:18
PROVIDERS: ADMIT Internal Medicine; ATTEND Hospitalist
DX: D61.810 Antineoplastic chemotherapy induced pancytopenia (principal); C79.51 Secondary malignant neoplasm of bone; C50.919 Malignant neoplasm of unspecified site of unspecified female breast; I10 Essential (primary) hypertension; E78.5 Hyperlipidemia, unspecified; E11.9 Type 2 diabetes mellitus without complications; Z79.899 Other long term (current) drug therapy
CPT/HCPCS: 36415; 36416; 36430; 71045; 80048; 80053; 81001; 82550; 84484; 85025; 86850; 86900; 86901; 93005; 93010; 96374; 96375; 96376; 97139; G0378; J2272; J3010; P9016; P9035

== ENCOUNTER 2025-02-02 16:00 | Inpatient (IN) | payer MEDICARE ==
[2025-02-02 16:57] LABS: Hematocrit 19.1 % (36.0-47.0); Hemoglobin 6.6 g/dL (12.0-16.0); Mean Corpuscular Hemoglobin 30.4 pg (27.0-31.0); Mean Corpuscular Volume 88.0 fL (78.0-98.0); Platelet Count 15 10x3/uL (130-400); Red Blood Cell (RBC) Count 2.17 mill/uL (4.20-5.40); White Blood Cell (WBC) Count 1.28 10x3/uL (4.8-10.8)
[2025-02-02 17:09] LABS: ALT (SGPT) 8 U/L (Less than 34); AST (SGOT) 26 U/L (11-34); Albumin 3.1 g/dL (3.1-4.5); Alkaline Phosphatase 47 U/L (40-110); Anion Gap 12 mmol/L (10-20); BUN (Urea Nitrogen) 12 mg/dL (9.8-20.1); Bilirubin, Total 1.2 mg/dL (0.3-1.2); Calc. Creatinine Clearance 0 mL/min (70-130); Calcium 8.6 mg/dL (7.8-10.44); Carbon Dioxide 25 mmol/L (23-31); Chloride 105 mmol/L (98-107); Globulin 3.5 g/dL (2.4-3.5); Glucose 102 mg/dL (83-110); Potassium 3.9 mmol/L (3.5-5.1); Sodium 138 mmol/L (136-145)
[2025-02-02 17:12] LABS: INR-International Normal Ratio 1.2; Prothrombin Time 15.4 sec (12.0-14.7)
[2025-02-02 17:13] LABS: PTT 28.6 sec (22.9-36.1)
[2025-02-02 17:30] LABS: Burr Cells SLIGHT = 2-5 cells HPF (0-1); Ovalocytes SLIGHT = 2-5 cells HPF (0-1); Platelet Adequacy Comment Platelets Decreased; Poikilocytosis MODERATE=16-30 cells HPF (0-5); Polychromasia SLIGHT = 2-3 cells HPF (0-2); Schistocytes SLIGHT = 2-5 cells HPF (0-1)
[2025-02-02] MEDS ORDERED: Ondansetron PF 4 MG/2 ML Vial IVP PRN (18:50)
[2025-02-02] MEDS ORDERED: Glucagon 1 MG/ML KIT IM PRN (19:01)
[2025-02-02] MEDS ORDERED: Dextrose 50% Abboject 50 ML SYRINGE SLOW IVP PRN (19:01)
[2025-02-03 04:21] LABS: Anion Gap 7 mmol/L (10-20); BUN (Urea Nitrogen) 11 mg/dL (9.8-20.1); Calc. Creatinine Clearance 102 mL/min (70-130); Calcium 8.3 mg/dL (7.8-10.44); Carbon Dioxide 28 mmol/L (23-31); Chloride 106 mmol/L (98-107); Glucose 91 mg/dL (83-110); Potassium 3.5 mmol/L (3.5-5.1); Sodium 137 mmol/L (136-145)
[2025-02-03 04:33] LABS: #Basophils 0.03 10x3/uL (0.0-0.2); #Eosinophils Less than 0.03 10x3/uL (0.0-0.7); #Monocytes 0.25 10x3/uL (0.11-0.59); #Neutrophils 0.51 10x3/uL (1.40-6.50); %Basophils 2.3 % (0.0-1.0); %Eosinophils 0.8 % (0.0-10.0); %Lymphocytes 37.9 % (21.0-51.0); %Monocytes 18.9 % (0.0-10.0); %Neutrophils 38.6 % (42.0-75.0); Hematocrit 18.0 % (36.0-47.0); Hemoglobin 5.8 g/dL (12.0-16.0); Mean Corpuscular Hemoglobin 27.1 pg (27.0-31.0); Mean Corpuscular Volume 84.1 fL (78.0-98.0); Platelet Count 46 10x3/uL (130-400); Red Blood Cell (RBC) Count 2.14 mill/uL (4.20-5.40); White Blood Cell (WBC) Count 1.32 10x3/uL (4.8-10.8)
[2025-02-03 06:01] LABS: Hematocrit 18.2 % (36.0-47.0); Hemoglobin 5.8 g/dL (12.0-16.0); Platelet Count 45 10x3/uL (130-400)
[2025-02-03] MEDS: HYDROcodone/Acetaminophen 5/325 mg Tablet PO PRN (10:09)
[2025-02-03 12:25] LABS: Hematocrit 22.9 % (36.0-47.0); Hemoglobin 7.4 g/dL (12.0-16.0); Mean Corpuscular Hemoglobin 27.6 pg (27.0-31.0); Mean Corpuscular Volume 85.4 fL (78.0-98.0); Platelet Count 39 10x3/uL (130-400); Red Blood Cell (RBC) Count 2.68 mill/uL (4.20-5.40); White Blood Cell (WBC) Count 1.27 10x3/uL (4.8-10.8)
[2025-02-03] MEDS: Letrozole 2.5 MG TAB PO SCH (15:56)
[2025-02-03] MEDS: metFORMIN 500 MG TAB PO SCH (15:56)
[2025-02-03] MEDS: PARoxetine 20 MG TAB PO SCH (15:57)
[2025-02-03 16:05] VITALS: BMI 25.7
[2025-02-03] MEDS: Ezetimibe 10 MG TAB PO SCH (21:00)
[2025-02-03] MEDS: Gabapentin 400 MG CAP PO SCH (21:00)
[2025-02-03] MEDS ORDERED: Gabapentin 400 MG CAP PO SCH (21:00)
[2025-02-04 01:42] VITALS: BMI 24.2
[2025-02-04 05:20] LABS: Hematocrit 26.9 % (36.0-47.0); Hemoglobin 8.9 g/dL (12.0-16.0); Mean Corpuscular Hemoglobin 28.4 pg (27.0-31.0); Mean Corpuscular Volume 85.9 fL (78.0-98.0); Platelet Count 35 10x3/uL (130-400); Red Blood Cell (RBC) Count 3.13 mill/uL (4.20-5.40); White Blood Cell (WBC) Count 1.25 10x3/uL (4.8-10.8)
[2025-02-04 05:52] LABS: Anisocytosis SLIGHT = 6-15 cells HPF (0-5); Platelet Adequacy Comment Platelets Decreased; Polychromasia SLIGHT = 2-3 cells HPF (0-2); Smudge Cells 18.4 %
[2025-02-04] MEDS: Acetaminophen 325 MG TAB PO PRN (06:36)
[2025-02-04] MEDS: PARoxetine 20 MG TAB PO SCH (08:11)
[2025-02-04] MEDS: Multivitamin W/ Minerals 1 TAB PO SCH (08:11)
[2025-02-04] MEDS: Cholecalciferol 1,000 UNITS (25 MCG) TAB PO SCH (08:14)
[2025-02-04] MEDS: Letrozole 2.5 MG TAB PO SCH (08:15)
[2025-02-04] MEDS ORDERED: MORPHINE 30 MG PO PRN (10:53)
[2025-02-04] MEDS ORDERED: Morphine IR Tab 15 MG TAB PO PRN (10:57)
[2025-02-04] MEDS: Morphine IR Tab 15 MG TAB PO PRN (11:56)
[2025-02-04] MEDS ORDERED: Ezetimibe 10 MG TAB PO SCH (21:00)
[2025-02-05 03:31] LABS: #Basophils 0.03 10x3/uL (0.0-0.2); #Eosinophils Less than 0.03 10x3/uL (0.0-0.7); #Monocytes 0.24 10x3/uL (0.11-0.59); #Neutrophils 0.50 10x3/uL (1.40-6.50); %Basophils 1.9 % (0.0-1.0); %Eosinophils 1.2 % (0.0-10.0); %Lymphocytes 49.7 % (21.0-51.0); %Monocytes 14.9 % (0.0-10.0); %Neutrophils 31.1 % (42.0-75.0); Hematocrit 22.7 % (36.0-47.0); Hemoglobin 7.4 g/dL (12.0-16.0); Mean Corpuscular Hemoglobin 28.2 pg (27.0-31.0); Mean Corpuscular Volume 86.6 fL (78.0-98.0); Platelet Count 24 10x3/uL (130-400); Red Blood Cell (RBC) Count 2.62 mill/uL (4.20-5.40); White Blood Cell (WBC) Count 1.61 10x3/uL (4.8-10.8)
[2025-02-05] MEDS: Magnesium Oxide 400 MG TAB PO SCH (08:12)
[2025-02-05] MEDS: Letrozole 2.5 MG TAB PO SCH (08:12)
[2025-02-05] MEDS ORDERED: ERGOCALCIFEROL 50 MCG PO SCH (09:00)
[2025-02-05] MEDS ORDERED: Multivitamin W/ Minerals 1 TAB PO SCH (09:00)
[2025-02-05] MEDS ORDERED: FLU (Fluad Triv) 25-26 (65UP)PF 45 MCG/0.5 ML Syringe IM ONE (09:00)
[2025-02-05] MEDS ORDERED: Cholecalciferol 1,000 UNITS (25 MCG) TAB PO SCH (09:00)
[2025-02-05] MEDS: Methocarbamol 500 MG TAB PO PRN (21:10)
[2025-02-06 06:06] LABS: Hematocrit 24.0 % (36.0-47.0); Hemoglobin 7.6 g/dL (12.0-16.0); Mean Corpuscular Hemoglobin 27.7 pg (27.0-31.0); Mean Corpuscular Volume 87.6 fL (78.0-98.0); Platelet Count 39 10x3/uL (130-400); Red Blood Cell (RBC) Count 2.74 mill/uL (4.20-5.40); White Blood Cell (WBC) Count 1.42 10x3/uL (4.8-10.8)
[2025-02-06 06:30] LABS: Nucleated RBC (Manual Ct) 1 % (0); Platelet Adequacy Comment Platelets Decreased; Poikilocytosis MODERATE=16-30 cells HPF (0-5); Polychromasia SLIGHT = 2-3 cells HPF (0-2)
[2025-02-06] MEDS: Folic Acid 1 MG TAB PO SCH (20:53)
[2025-02-06] MEDS: Multivit, Therapeutic 1 TAB PO SCH (20:53)
[2025-02-06] MEDS: Cyanocobalamin (Vitamin B-12) 1,000 MCG TAB PO SCH (20:53)
[2025-02-07 07:23] LABS: Anion Gap 10 mmol/L (10-20); BUN (Urea Nitrogen) 19 mg/dL (9.8-20.1); Calc. Creatinine Clearance 102 mL/min (70-130); Calcium 8.6 mg/dL (7.8-10.44); Carbon Dioxide 27 mmol/L (23-31); Chloride 106 mmol/L (98-107); Glucose 108 mg/dL (83-110); Magnesium 1.8 mg/dL (1.6-2.6); Potassium 4.1 mmol/L (3.5-5.1); Sodium 139 mmol/L (136-145)
[2025-02-07 08:00] LABS: Hematocrit 21.4 % (36.0-47.0); Hemoglobin 6.9 g/dL (12.0-16.0); Mean Corpuscular Hemoglobin 28.0 pg (27.0-31.0); Mean Corpuscular Volume 87.0 fL (78.0-98.0); Platelet Count 24 10x3/uL (130-400); Red Blood Cell (RBC) Count 2.46 mill/uL (4.20-5.40); White Blood Cell (WBC) Count 1.65 10x3/uL (4.8-10.8)
[2025-02-07 09:36] LABS: Anisocytosis SLIGHT = 6-15 cells HPF (0-5); Burr Cells SLIGHT = 2-5 cells HPF (0-1); Microcytosis SLIGHT = 6-15 cells HPF (0-5); Platelet Adequacy Comment Platelets Decreased; Schistocytes SLIGHT = 2-5 cells HPF (0-1); Smudge Cells 21.4 %
[2025-02-08 12:54] LABS: Hematocrit 26.2 % (36.0-47.0); Hemoglobin 8.4 g/dL (12.0-16.0); Mean Corpuscular Hemoglobin 28.3 pg (27.0-31.0); Mean Corpuscular Volume 88.2 fL (78.0-98.0); Platelet Count 19 10x3/uL (130-400); Red Blood Cell (RBC) Count 2.97 mill/uL (4.20-5.40); White Blood Cell (WBC) Count 1.47 10x3/uL (4.8-10.8)
[2025-02-08 12:58] LABS: #Basophils 0.04 10x3/uL (0.0-0.2); #Eosinophils 0.03 10x3/uL (0.0-0.7); #Monocytes 0.29 10x3/uL (0.11-0.59); #Neutrophils 0.41 10x3/uL (1.40-6.50); %Basophils 2.9 % (0.0-1.0); %Eosinophils 2.2 % (0.0-10.0); %Lymphocytes 41.0 % (21.0-51.0); %Monocytes 20.9 % (0.0-10.0); %Neutrophils 29.4 % (42.0-75.0); Hematocrit 26.0 % (36.0-47.0); Hemoglobin 8.5 g/dL (12.0-16.0); Mean Corpuscular Hemoglobin 29.0 pg (27.0-31.0); Mean Corpuscular Volume 88.7 fL (78.0-98.0); Platelet Count 25 10x3/uL (130-400); Red Blood Cell (RBC) Count 2.93 mill/uL (4.20-5.40); White Blood Cell (WBC) Count 1.39 10x3/uL (4.8-10.8)
[2025-02-08 13:51] LABS: Anisocytosis SLIGHT = 6-15 cells HPF (0-5); Nucleated RBC (Manual Ct) 2 % (0); Platelet Adequacy Comment Platelets Decreased; Poikilocytosis SLIGHT = 6-15 cells HPF (0-5); Schistocytes SLIGHT = 2-5 cells HPF (0-1); Smudge Cells 13.6 %
[2025-02-09 06:01] LABS: #Basophils Less than 0.03 10x3/uL (0.0-0.2); #Eosinophils 0.04 10x3/uL (0.0-0.7); #Monocytes 0.31 10x3/uL (0.11-0.59); #Neutrophils 0.46 10x3/uL (1.40-6.50); %Basophils 1.3 % (0.0-1.0); %Eosinophils 2.5 % (0.0-10.0); %Lymphocytes 46.8 % (21.0-51.0); %Monocytes 19.6 % (0.0-10.0); %Neutrophils 29.2 % (42.0-75.0); Hematocrit 24.1 % (36.0-47.0); Hemoglobin 7.8 g/dL (12.0-16.0); Mean Corpuscular Hemoglobin 28.7 pg (27.0-31.0); Mean Corpuscular Volume 88.6 fL (78.0-98.0); Platelet Count 37 10x3/uL (130-400); Red Blood Cell (RBC) Count 2.72 mill/uL (4.20-5.40); White Blood Cell (WBC) Count 1.58 10x3/uL (4.8-10.8)
[2025-02-09 14:43] VITALS: BP 103/60; TEMP 97.7
== END 2025-02-09 17:00 | DRG 809 ==
LOC: ERS 16:00 → PCU 18:50 → T4-B 02-05 15:13
PROVIDERS: ADMIT Internal Medicine; ATTEND Internal Medicine
PROC: 30233N1 Transfusion of Nonautologous Red Blood Cells into Peripheral Vein, Percutaneous Approach (ICD-10-PCS; principal; 2025-02-02)
DX: D61.810 Antineoplastic chemotherapy induced pancytopenia (principal); C79.51 Secondary malignant neoplasm of bone; I10 Essential (primary) hypertension; E78.5 Hyperlipidemia, unspecified; E11.9 Type 2 diabetes mellitus without complications; C50.919 Malignant neoplasm of unspecified site of unspecified female breast; G89.29 Other chronic pain; F41.9 Anxiety disorder, unspecified; Z79.84 Long term (current) use of oral hypoglycemic drugs; Z79.899 Other long term (current) drug therapy
CPT/HCPCS: 36415; 36416; 36430; 80048; 80053; 83605; 83735; 84100; 85025; 85610; 85730; 86850; 86900; 86901; 87040; 87077; 87149; 87428; 97139; 99285; J7030; P9016; P9035

== ENCOUNTER 2025-02-15 18:24 | Emergency (ER) | payer MEDICARE ==
[2025-02-15 19:39] LABS: Hematocrit 21.5 % (36.0-47.0); Hemoglobin 7.1 g/dL (12.0-16.0); Mean Corpuscular Hemoglobin 28.6 pg (27.0-31.0); Mean Corpuscular Volume 86.7 fL (78.0-98.0); Platelet Count 12 10x3/uL (130-400); Red Blood Cell (RBC) Count 2.48 mill/uL (4.20-5.40); White Blood Cell (WBC) Count 1.54 10x3/uL (4.8-10.8)
[2025-02-15 19:54] LABS: ALT (SGPT) 9 U/L (Less than 34); AST (SGOT) 23 U/L (11-34); Albumin 3.0 g/dL (3.1-4.5); Alkaline Phosphatase 55 U/L (40-110); Anion Gap 8 mmol/L (10-20); BUN (Urea Nitrogen) 10 mg/dL (9.8-20.1); Bilirubin, Total 0.8 mg/dL (0.3-1.2); Calc. Creatinine Clearance 0 mL/min (70-130); Calcium 8.8 mg/dL (7.8-10.44); Carbon Dioxide 27 mmol/L (23-31); Chloride 102 mmol/L (98-107); Globulin 3.6 g/dL (2.4-3.5); Glucose 100 mg/dL (83-110); Potassium 4.1 mmol/L (3.5-5.1); Sodium 133 mmol/L (136-145)
[2025-02-15 19:55] LABS: Burr Cells SLIGHT = 2-5 cells HPF (0-1); Macrocytosis SLIGHT = 6-15 cells HPF (0-5); Ovalocytes SLIGHT = 2-5 cells HPF (0-1); Platelet Adequacy Comment Significant Decrease; Polychromasia SLIGHT = 2-3 cells HPF (0-2); Smudge Cells 7.5 %
== END 2025-02-16 01:43 ==
LOC: ERS 18:24
DX: D64.9 Anemia, unspecified (principal); D69.6 Thrombocytopenia, unspecified; I95.9 Hypotension, unspecified; E11.9 Type 2 diabetes mellitus without complications; Z79.899 Other long term (current) drug therapy
CPT/HCPCS: 36430; 80053; 85025; 86850; 86900; 86901; 86920; J2270; 96361; 96374; P9016; P9035